=== PATIENT | female | born 1950 | race Caucasian/White ===

== ENCOUNTER 2025-05-08 09:44 | Outpatient (RCR) | payer MEDICARE, BC, SELFPAY | END 2025-05-18 23:59 | disposition home or self-care (01) | LOC: GPT 09:44 | PROVIDERS: Visit Provider Nurse Practitioner | DX: M25.552 Pain in left hip (principal) | CPT/HCPCS: 97110; 97112; 97161; 97530 ==

== ENCOUNTER 2025-05-29 09:45 | Outpatient (RCR) | payer MEDICARE, BC, SELFPAY | END 2025-06-18 23:59 | disposition home or self-care (01) | LOC: GPT 09:45 | PROVIDERS: Visit Provider Nurse Practitioner | DX: M25.552 Pain in left hip (principal) | CPT/HCPCS: 97110; 97112; 97530 ==